=== PATIENT | female | born 1995 | race Caucasian/White ===

== ENCOUNTER 2023-09-16 21:24 | Emergency (ER) | payer SELFPAY ==
[2023-09-16 21:44] VITALS: RESP 18; BMI 25.7
[2023-09-16] MEDS ORDERED: ONDANSETRON 4 MG/2 ML VIAL ONE (22:51)
[2023-09-16 22:52] LABS: BASO % 0.5 % (0-2.0); EOS % 0.8 % (0-4.5); HEMATOCRIT 44.3 % (32.4-45.2); HEMOGLOBIN 14.9 GM/dL (10.7-15.3); LYMPH % 23.1 % (8-40); MCH 30.8 pg (25.7-33.7); MCHC 33.5 g/dl (32.0-36.0); MEAN CELL VOLUME 91.9 fl (80-96); MEAN PLT VOLUME 8.8 fl (7.5-11.1); MONO % 8.5 % (3.8-10.2); NEUT % 67.1 % (42.8-82.8); PLATELET COUNT 329 10^3/uL (134-434); RBC 4.83 M/mm3 (3.60-5.2); RDW 13.3 % (11.6-15.6); WHITE BLOOD COUNT 10.8 K/mm3 (4.0-10.0)
[2023-09-16 22:58] LABS: PH,URINE 6.5 (5.0-8.0); URINE APPEARANCE CLEAR; URINE BILIRUBIN NEGATIVE (NEGATIVE); URINE COLOR YELLOW; URINE GLUCOSE (UA) NEGATIVE (NEGATIVE); URINE KETONE NEGATIVE (NEGATIVE); URINE LEUK ESTERASE NEGATIVE (NEGATIVE); URINE NITRITE NEGATIVE (NEGATIVE); URINE PROTEIN NEGATIVE (NEGATIVE); URINE UROBILINOGEN 0.2 mg/dL (0.2-1.0)
[2023-09-16] MEDS: ONDANSETRON 4 MG/2 ML VIAL IVPUSH ONE (22:58)
[2023-09-16] MEDS: SODIUM CHLORIDE 0.9% 500 ML INFUS.BAG IV ONE (22:58)
[2023-09-16 23:04] LABS: POTASSIUM 5.4 mmol/L (3.5-5.1)
[2023-09-16 23:06] LABS: BLOOD UREA NITROGEN 12.7 mg/dL (7-18); MAGNESIUM 2.3 mg/dL (1.8-2.4)
[2023-09-16 23:07] LABS: ALBUMIN 3.7 g/dl (3.4-5.0)
[2023-09-16 23:10] LABS: CREATININE 0.9 mg/dL (0.55-1.3)
[2023-09-16 23:11] LABS: BILIRUBIN,TOTAL 0.4 mg/dL (0.2-1); TOT PROT 7.7 g/dl (6.4-8.2)
[2023-09-17 00:50] VITALS: BP 103/63; PULSE 75; TEMP 98.5
== END 2023-09-17 02:27 | disposition home or self-care (01) ==
LOC: JER 21:24
PROC: 3E033GC Introduction of Other Therapeutic Substance into Peripheral Vein, Percutaneous Approach (ICD-10-PCS; principal; 2023-09-16)
DX: O21.9 Vomiting of pregnancy, unspecified (principal); Z3A.01 Less than 8 weeks gestation of pregnancy; Z20.822 Contact with and (suspected) exposure to COVID-19
CPT/HCPCS: 0241U-QW; 36415; 76817-TC; 80053; 81003; 83735; 84702; 85025; 87086; 99284-25

== ENCOUNTER 2024-01-19 16:04 | Emergency (ER) | payer OTHER ==
[2024-01-19 16:12] VITALS: RESP 20; BMI 29.0
[2024-01-19 18:30] LABS: BASO % 0.4 % (0-2.0); EOS % 0.9 % (0-4.5); HEMATOCRIT 38.8 % (32.4-45.2); HEMOGLOBIN 12.8 GM/dL (10.7-15.3); LYMPH % 14.4 % (8-40); MEAN CELL VOLUME 90.7 fl (80-96); MEAN PLT VOLUME 7.1 fl (7.5-11.1); MONO % 7.1 % (3.8-10.2); NEUT % 77.2 % (42.8-82.8); PLATELET COUNT 342 10^3/uL (134-434); RBC 4.28 M/mm3 (3.60-5.2); RDW 13.3 % (11.6-15.6); WHITE BLOOD COUNT 11.5 K/mm3 (4.0-10.0)
[2024-01-19 19:09] LABS: EPI CELLS 6 /uL (0-25.1); HYALINE CASTS 0 /uL (0-3.1); PH,URINE 6.5 (5.0-8.0); URINE APPEARANCE CLEAR; URINE BACTERIA 291 /uL (0-1359); URINE BILIRUBIN NEGATIVE (NEGATIVE); URINE COLOR YELLOW; URINE GLUCOSE (UA) NEGATIVE (NEGATIVE); URINE KETONE TRACE (NEGATIVE); URINE LEUK ESTERASE TRACE (NEGATIVE); URINE NITRITE NEGATIVE (NEGATIVE); URINE PROTEIN NEGATIVE (NEGATIVE); URINE RBC 4 /uL (0-23.9); URINE UROBILINOGEN 0.2 mg/dL (0.2-1.0); URINE WBC 5 /uL (0-25.8)
[2024-01-19 19:12] LABS: POTASSIUM 4.8 mmol/L (3.5-5.1)
[2024-01-19 19:15] LABS: CALCIUM 9.6 mg/dL (8.5-10.1)
[2024-01-19 19:16] LABS: BLOOD UREA NITROGEN 6.4 mg/dL (7-18)
[2024-01-19 19:19] LABS: CREATININE 0.5 mg/dL (0.55-1.3)
[2024-01-19 19:20] LABS: BILIRUBIN,TOTAL 0.4 mg/dL (0.2-1); TOT PROT 7.1 g/dl (6.4-8.2)
[2024-01-19 22:08] LABS: URINE CRYSTALS NONE SEEN /hpf
[2024-01-20 03:35] VITALS: BP 129/84; PULSE 95; TEMP 98.6
== END 2024-01-20 00:10 | disposition home or self-care (01) ==
LOC: JER 16:04
DX: O26.892 Other specified pregnancy related conditions, second trimester (principal); R10.9 Unspecified abdominal pain; R11.0 Nausea; O99.891 Other specified diseases and conditions complicating pregnancy; R19.7 Diarrhea, unspecified; Z3A.23 23 weeks gestation of pregnancy
CPT/HCPCS: 36415; 76700-TC; 80053; 81003; 83690; 85025; 87086; 99284-25

== ENCOUNTER 2024-03-20 05:10 | Inpatient (IN) | payer OTHER ==
[2024-03-20] MEDS ORDERED: LACTATED RINGERS SOLUTION 1,000 ML IV SCH (05:50)
[2024-03-20] MEDS ORDERED: AMPICILLIN SODIUM 2 GM VIAL ONE (05:59)
[2024-03-20] MEDS ORDERED: BETAMET ACET/BETAMET NA PH 30 MG/5 ML VIAL ONE (05:59)
[2024-03-20] MEDS: AMPICILLIN - 2 GM in SODIUM CHLORIDE 100 ML IVPB ONE (06:01)
[2024-03-20] MEDS ORDERED: MAGNESIUM 4GM/H20 - 4 GM/100 ML IVPB IVPB ONE (06:02)
[2024-03-20] MEDS: MAGNESIUM 4GM/H20 - 4 GM/100 ML IVPB IVPB ONE (06:07)
[2024-03-20] MEDS: BETAMET ACET/BETAMET NA PH 30 MG/5 ML VIAL IM ONE (06:08)
[2024-03-20 06:20] LABS: BASO % 0.5 % (0-2.0); EOS % 0.8 % (0-4.5); HEMATOCRIT 39.7 % (32.4-45.2); HEMOGLOBIN 13.3 GM/dL (10.7-15.3); MCH 30.9 pg (25.7-33.7); MCHC 33.4 g/dl (32.0-36.0); MEAN CELL VOLUME 92.5 fl (80-96); MEAN PLT VOLUME 7.5 fl (7.5-11.1); MONO % 8.5 % (3.8-10.2); NEUT % 65.2 % (42.8-82.8); PLATELET COUNT 266 10^3/uL (134-434); RBC 4.29 M/mm3 (3.60-5.2); RDW 13.5 % (11.6-15.6); WHITE BLOOD COUNT 9.6 K/mm3 (4.0-10.0)
[2024-03-20] MEDS ORDERED: LABETALOL HCL 200 MG TABLET (FP) ONE (06:21)
[2024-03-20] MEDS: LABETALOL HCL 200 MG TABLET (FP) PO STA (06:23)
[2024-03-20 06:29] LABS: EPI CELLS >36 /uL (0-25.1); HYALINE CASTS 138 /uL (0-3.1); PH,URINE 8.5 (5.0-8.0); URINE APPEARANCE TURBID; URINE BACTERIA 1319 /uL (0-1359); URINE BILIRUBIN NEGATIVE (NEGATIVE); URINE COLOR RED; URINE GLUCOSE (UA) NEGATIVE (NEGATIVE); URINE KETONE NEGATIVE (NEGATIVE); URINE LEUK ESTERASE TRACE (NEGATIVE); URINE NITRITE NEGATIVE (NEGATIVE); URINE PROTEIN 3+ (NEGATIVE); URINE RBC 1385 /uL (0-23.9); URINE UROBILINOGEN 0.2 mg/dL (0.2-1.0); URINE WBC 72 /uL (0-25.8)
[2024-03-20 06:34] VITALS: BMI 32.3
[2024-03-20] MEDS ORDERED: MAGNESIUM SULFATE 20GM/500ML - 20 GM/500 ML INFUS.BAG ONE (06:34)
[2024-03-20] MEDS: MAGNESIUM SULFATE 20GM/500ML - 20 GM/500 ML INFUS.BAG IVPB SCH (06:37)
[2024-03-20 06:41] LABS: ALBUMIN 2.9 g/dl (3.4-5.0); CALCIUM 9.2 mg/dL (8.5-10.1)
[2024-03-20 06:45] LABS: CREATININE 0.6 mg/dL (0.55-1.3)
[2024-03-20 06:46] LABS: BILIRUBIN,TOTAL 0.3 mg/dL (0.2-1); TOT PROT 6.3 g/dl (6.4-8.2)
[2024-03-20] MEDS ORDERED: OXYTOCIN 20 UNITS in 0.9% NS 20 UNIT/1,000 ML INFUS.BAG IV ONE ×2 (07:01→08:22)
[2024-03-20] MEDS: OXYTOCIN 20 UNITS in 0.9% NS 20 UNIT/1,000 ML INFUS.BAG IV SCH (07:20)
[2024-03-20] MEDS ORDERED: MEPERIDINE HCL 25 MG/ML VIAL ONE (07:27)
[2024-03-20] MEDS: MEPERIDINE HCL CARPU-JECT 50 MG/1 ML DISP.SYRIN IVPUSH ONE (07:32)
[2024-03-20 08:00] LABS: CORD BASE EXCESS -4.9 mmol/L (0-2); CORD HCO3 24.2 mmHg (20-29); CORD PCO2 61.8 mmHg (30-78); CORD pH 7.211 (7.14-7.44)
[2024-03-20 08:11] LABS: CORD BASE EXCESS -1.8 mmol/L (0-2); CORD HCO3 24.6 mmHg (20-29); CORD PCO2 47.2 mmHg (30-78); CORD pH 7.334 (7.14-7.44)
[2024-03-20] MEDS ORDERED: BISACODYL 10 MG SUPP.RECT RC PRN (09:09)
[2024-03-20] MEDS ORDERED: METHYLERGONOVINE MALEATE 0.2 MG/1 ML AMP IM PRN (09:09)
[2024-03-20] MEDS ORDERED: BENZOCAINE 28 GM HEMORRHOIDAL OINTMENT TP PRN (09:09)
[2024-03-20 09:34] LABS: CREATININE, URINE RANDOM < 13.0 mg/dL (30-150)
[2024-03-20] MEDS ORDERED: AMPICILLIN - 1 GM in SODIUM CHLORIDE 100 ML IVPB SCH (10:15)
[2024-03-20] MEDS ORDERED: IBUPROFEN 600 MG TABLET (FP) PO ONE (10:33)
[2024-03-20] MEDS: IBUPROFEN 600 MG TABLET (FP) PO PRN (10:36)
[2024-03-20 12:48] VITALS: RESP 18
[2024-03-20] MEDS: WITCH HAZEL 50% (TUCKS) 40 PAD/JAR PAD TP PRN (21:53)
[2024-03-20] MEDS: BENZOCAINE 20% 57 GM BOTTLE TP PRN (21:54)
[2024-03-21 06:57] LABS: HEMATOCRIT 30.4 % (32.4-45.2); HEMOGLOBIN 9.8 GM/dL (10.7-15.3); MCH 30.2 pg (25.7-33.7); MCHC 32.2 g/dl (32.0-36.0); MEAN CELL VOLUME 93.7 fl (80-96); MEAN PLT VOLUME 7.6 fl (7.5-11.1); PLATELET COUNT 275 10^3/uL (134-434); RBC 3.24 M/mm3 (3.60-5.2); RDW 13.6 % (11.6-15.6); WHITE BLOOD COUNT 22.5 K/mm3 (4.0-10.0)
[2024-03-21 08:40] LABS: ANISOCYTOSIS 0; MACROCYTOSIS 0
[2024-03-21] MEDS: oxyCODONE HCL 5 MG TABLET PO PRN (11:03)
[2024-03-21] MEDS: LABETALOL HCL 200 MG TABLET (FP) PO ONE (19:01)
[2024-03-21] MEDS ORDERED: SENNOSIDES/DOCUSATE COMBO (SENNA PLUS) TABLET (UD) PO PRN (22:00)
[2024-03-22] MEDS: ACETAMINOPHEN 325 MG TABLET (FP) PO PRN (06:20)
[2024-03-22 11:09] LABS: BASO % 0.3 % (0-2.0); EOS % 0.2 % (0-4.5); HEMATOCRIT 32.3 % (32.4-45.2); HEMOGLOBIN 10.4 GM/dL (10.7-15.3); LYMPH % 16.7 % (8-40); MCH 30.3 pg (25.7-33.7); MCHC 32.3 g/dl (32.0-36.0); MEAN CELL VOLUME 93.6 fl (80-96); MEAN PLT VOLUME 7.2 fl (7.5-11.1); MONO % 6.9 % (3.8-10.2); NEUT % 75.9 % (42.8-82.8); PLATELET COUNT 300 10^3/uL (134-434); RBC 3.45 M/mm3 (3.60-5.2); RDW 13.8 % (11.6-15.6); WHITE BLOOD COUNT 18.4 K/mm3 (4.0-10.0)
[2024-03-22] MEDS: IRON SUCROSE INJECTION 200 MG in SODIUM CHLORIDE 100 ML IVPB ONE (12:18)
[2024-03-22] MEDS ORDERED: FLUTICASONE PROP 0.05% 16 GM NASAL SPRAY NS SCH (14:45)
[2024-03-22] MEDS: FLUTICASONE PROP 0.05% 16 GM NASAL SPRAY NS SCH (17:09)
[2024-03-23 11:06] VITALS: BP 138/72; PULSE 116; TEMP 98.6
== END 2024-03-23 14:33 | disposition home or self-care (01) | DRG 560 ==
LOC: JDEL 05:10 → JLDR 06:00 → J3W 11:35
PROVIDERS: ADMIT Obstetrics & Gynecology; ATTEND Obstetrics & Gynecology
PROC: 10E0XZZ Delivery of Products of Conception, External Approach (ICD-10-PCS; principal; 2024-03-20)
PROC: 0KQM0ZZ Repair Perineum Muscle, Open Approach (ICD-10-PCS; 2024-03-20)
PROC: 0W8NXZZ Division of Female Perineum, External Approach (ICD-10-PCS; 2024-03-20)
DX: O60.14X0 Preterm labor third trimester with preterm delivery third trimester, not applicable or unspecified (principal); O42.913 Preterm premature rupture of membranes, unspecified as to length of time between rupture and onset of labor, third trimester; O13.4 Gestational [pregnancy-induced] hypertension without significant proteinuria, complicating childbirth; O70.1 Second degree perineal laceration during delivery; Z3A.32 32 weeks gestation of pregnancy; Z37.0 Single live birth
CPT/HCPCS: 0241U-QW; 36415; 36600; 59409; 80053; 81003; 82570; 82803; 82977; 83010; 83735; 84156; 84550; 85025; 85045; 86780; 86850; 86900; 86901; 87635; 88307-TC; 96372; 99285-25; G0378; J1756

== ENCOUNTER 2024-12-23 15:46 | Emergency (ER) | payer OTHER ==
[2024-12-23 16:02] VITALS: BP 132/99; PULSE 96; RESP 18; TEMP 98; BMI 32.5
[2024-12-23] MEDS ORDERED: ACETAMINOPHEN 325 MG TABLET (FP) ONE (17:51)
[2024-12-23] MEDS ORDERED: LIDOCAINE 4% PATCH TP ONE (17:51)
[2024-12-23] MEDS ORDERED: METHOCARBAMOL 500 MG TABLET ONE ×2 (17:51→17:52)
[2024-12-23] MEDS: ACETAMINOPHEN 500 MG TABLET (FP) PO ONE (17:55)
[2024-12-23] MEDS: METHOCARBAMOL 500 MG TABLET PO ONE (17:56)
[2024-12-23] MEDS: LIDOCAINE 5% TOPICAL PATCH TP ONE (18:24)
[2024-12-23] MEDS ORDERED: LIDOCAINE PATCH REMOVAL MC SCH (22:00)
== END 2024-12-23 18:50 | disposition home or self-care (01) ==
LOC: JERFT 15:46
DX: M54.41 Lumbago with sciatica, right side (principal)
CPT/HCPCS: 84703; 99283-25